=== PATIENT | male | born 1975 | race Asian ===

== ENCOUNTER 2018-08-16 06:54 | Day surgery (SDC) | payer OTHER ==
[~2018-08-16] VITALS: Ht 177.8 cm; Wt 71.7 kg
[2018-08-16] VITALS (8 sets, daily range): BP systolic 101–112; BP diastolic 8–79
[~2018-08-16 06:54] MED LIST: OMEPRAZOLE20 M3 ORAL
[2018-08-16] MEDS ORDERED: LR 1000ml 1,000 ML IVLG SCH (07:00)
--- NOTE | 2018-08-16 07:38 | Anethesia Preoperative Eval ---
Anesthesia Pre-op PMH/ROS General Date of Evaluation: Aug 16, 2018 Time of Evaluation: 07:35 Anesthesiologist: Bárbara Son CRNA ASA Score: ASA 2 Mallampati Score Class I : Soft palate, uvula, fauces, pillars visible Class II: Soft palate, uvula, fauces visible Class III: Soft palate, base of uvula visible Class IV: Only hard plate visible Mallampati Classification: Class II Surgeon: Chrissy Diagnosis: Dysphagia Surgical Procedure: EGD with biopsy Anesthesia History: none Family History: no anesthesia problems Allergies: Coded Allergies: PENICILLINS (Verified Allergy, Unknown, 08/15/18) Medications: see eMAR Patient NPO?: Yes NPO Date: Aug 16, 2018 NPO Time: 00:00 Past Medical History Cardiovascular: Denies: HTN, CAD, LA, valve dz, arrhythmia, other Pulmonary: Denies: asthma, COPD, OVIDIO, other Gastrointestinal/Genitourinary: Reports: GERD; Denies: CRI, ESRD, other Neurologic/Psychiatric: Denies: dementia, CVA, depression/anxiety, TIA, other Endocrine: Denies: DM, hypothyroidism, steroids, other HEENT: Denies: cataract (L), cataract (R), glaucoma, NEWHALEN (L), NEWHALEN (R), other Hematology/Immune: Denies: anemia, DVT, bleeding disorder, other Musculoskeletal/Integumentary: Reports: other - Lower back pain; Denies: OA, RA, DJD, DDD, edema PMH Narrative: As noted above PSxH Narrative: none Anesthesia Pre-op Phys. Exam Physician Exam Last Vital Signs Date Time Temp Pulse Resp B/P (MAP) Pulse Ox O2 Delivery O2 Flow Rate FiO2 08/16/18 07:25 Room Air 08/16/18 07:24 97.1 50 18 101/63 100 Constitutional: NAD Neurologic: other - alert & oriented Cardiovascular: RRR Respiratory: CTA Gastrointestinal: S/NT/ND Airway Exam Mallampati Score: Class II MO: full Neck: no limitations TMD: > 3 FB ROM: full Teeth: intact Dentures: no upper, no lower Anesthesia Pre-op A/P Risk Assessment & Plan Assessment: ASA 1, ok to proceed Plan: MAC Status Change Before Surgery: No Pre-Antibiotics Given Within 1 Hr of Incision: Bárbara Gonsalez CRNA Aug 16, 2018 07:38
--- NOTE | 2018-08-16 08:27 | Pre-Procedure Note/Attestation ---
Pre-Procedure Note/Attestation Complete Prior to Procedure Planned Procedure: not applicable Procedure Narrative: EGD Indications for Procedure Pre-Operative Diagnosis: chest pain, GERD Attestation I attest that I discussed the nature of the procedure; its benefits; risks and complications; and alternatives (and the risks and benefits of such alternatives ), prior to the procedure, with the patient (or the patient's legal union contract representative). I attest that, if there was a reasonable possibility of needing a blood transfusion, the patient (or the patient's legal union contract representative) was given the [facility] standardized written summary, pursuant to the Uriel Ulises Blood Safety Act ([place] Health and Safety Code # 1645, as amended). I attest that I re-evaluated the patient just prior to the surgery and that there has been no change in the patient's H&P, except as documented below: Adelaide Sharma MD Aug 16, 2018 08:27
--- NOTE | 2018-08-16 08:28 | Short Stay Surgery H&P ---
History of Present Illness History of Present Illness Chief Complaint See typed H&P HPI Konstantin Alford is a 42 year old male who was admitted on for Dysphagia, Pharyngoesophagel Patient History Allergies: Coded Allergies: PENICILLINS (Verified Allergy, Unknown, 08/15/18) Medication History Scheduled Omeprazole (Omeprazole), 20 MG ORAL DAILY, (Reported) Physical Exam Vital Signs Last Vital Signs Date Time Temp Pulse Resp B/P (MAP) Pulse Ox O2 Delivery O2 Flow Rate FiO2 08/16/18 07:25 Room Air 08/16/18 07:24 97.1 50 18 101/63 100 Plan Attestation Are the patient's medical conditions optimized for surgery? Adelaide Sharma MD Aug 16, 2018 08:28
[2018-08-16] MEDS ORDERED: LR 1000ml ONE (08:30)
[2018-08-16] MEDS ORDERED: Lidocaine 1% MPF 10mg/ml 5ml ONE (08:30)
[2018-08-16] MEDS ORDERED: Propofol 200mg/20ml IV ONE (08:30)
--- NOTE | 2018-08-16 09:02 | 48 Hour Post Anesthesia Eval ---
Post Anesthesia Evaluation Procedure: EGD with biopsy Date of Evaluation: Aug 16, 2018 Time of Evaluation: 08:47 Blood Pressure Systolic: 103 0: 79 Pulse Rate: 62 Respiratory Rate: 12 Temperature (Fahrenheit): 97.3 O2 Sat by Pulse Oximetry: 100 Airway: patent Nausea: No Vomiting: No Pain Intensity: 0 Hydration Status: adequate Cardiopulmonary Status: stable Mental Status/LOC: patient returned to baseline Follow-up Care/Observations: per GI Post-Anesthesia Complications: none Follow-up care needed: N/A Bárbara Son CRNA Aug 16, 2018 09:02
--- NOTE | 2018-08-16 09:12 | Immediate Post-Op Evaluation ---
Immediate Post-Op Evalulation Immediate Post-Op Evalulation Procedure: EGD with biopsy Date of Evaluation: Aug 16, 2018 Time of Evaluation: 08:47 IV Fluids: LR 500 ml Blood Pressure Systolic: 103 Blood Pressure Diastolic: 79 Pulse Rate: 62 Respiratory Rate: 12 O2 Sat by Pulse Oximetry: 100 Temperature (Fahrenheit): 97.3 Pain Score (1-10): 0 Nausea: No Vomiting: No Complications none Patient Status: awake, reacts, patent Hydration Status: adequate Given Within 1 Hr of Incision: Bárbara Gonsalez CRNA Aug 16, 2018 09:12
--- NOTE | 2018-08-16 09:19 | Endoscopy Procedure Note ---
Endoscopy Procedure Note General Indication for Procedure: cp, gerd Procedures Performed: EGD Operative Findings/Diagnosis: 2 fundus dim polyps Specimen: yes Pt Tolerated Procedure Well: Yes Estimated Blood Loss: none Anesthesia Anesthesiologist: see report Anesthesia: MAC Medications Medication Given: see anesthesia record Inserted Devices Implant(s) used?: No GI Core Measures 50 yrs or older w/o bx or poly: Not Applicable 10yrs. F/U not recommended: Not Applicable If not recommended, why?: Adelaide Sharma MD Aug 16, 2018 09:19
--- NOTE | 2018-08-16 09:20 | Brief Operative Note ---
Immediate Post Operative Note Operative Note Chief Complaint: cp, gerd Pre-op Diagnosis: chest pain, GERD Procedure: esophagogastroduodenoscopy bx Post-op Diagnosis: gerd Surgeon: ashley Anesthesiologist: see report Anesthesia: MAC Specimen: yes Complications: none Condition: stable Fluids: recorded Estimated Blood Loss: none Implant(s) used?: No Adelaide Sharma MD Aug 16, 2018 09:20
--- NOTE | 2018-08-16 17:00 | Procedure Note ---
DATE OF PROCEDURE: 08/16/2018 PROCEDURE: Upper gastrointestinal endoscopy with biopsy. SURGEON: Adelaide Sharma M.D. ANESTHESIA: Please see the separate anesthesiologist notes for details. PRE-ENDOSCOPIC DIAGNOSES: Chest pain, rule out gastroesophageal reflux versus eosinophilic esophagitis. POST-ENDOSCOPIC DIAGNOSES: 1. Two diminutive fundic polyps status post biopsy. 2. Otherwise visually normal upper endoscopy status post random biopsy of the antrum, lower esophagus and mid esophagus. DESCRIPTION OF PROCEDURE: The procedure, its risks, indications, alternatives, and possible complications were explained to the patient and informed consent was obtained. The diagnostic upper endoscope was then introduced into oropharynx and advanced to the duodenum. The endoscope was then gradually withdrawn and the mucosa examined carefully. Findings and procedures were are as listed above. The endoscope was removed. The patient was sent to recovery in good condition. COMPLICATIONS: None. ASSESSMENT: There were no visual findings to explain the patient's chest pain but biopsies will be evaluated to rule out microscopic evidence of disease. RECOMMENDATIONS: 1. Resume previous medications and diet. 2. Followup biopsy results. 3. Outpatient followup. Adelaide Sharma M.D. DR: Jose Guadalupe JOB#: [id number] CC:
== END 2018-08-16 09:50 | disposition home or self-care (01) ==
LOC: GAS 06:54
DX: K31.7 Polyp of stomach and duodenum (principal); R07.9 Chest pain, unspecified; Z88.0 Allergy status to penicillin; K21.9 Gastro-esophageal reflux disease without esophagitis; K29.50 Unspecified chronic gastritis without bleeding
CPT/HCPCS: 43239; J2704; 94003; 94150